=== PATIENT | male | born 1930 | race Caucasian/White ===

== ENCOUNTER 2016-07-06 06:25 | Day surgery (SDC) | payer MEDICARE ==
--- NOTE | 2016-07-05 13:27 | NUR ---
JOINT CAMP: Patient attended joint camp at [facility], patient is scheduled for knee replacement on 07/06/16. Patient states he does have a DPOA and he will be bringing in a copy. Patient comes from home and has 2 stairs to enter the home and then 12 inside. Megan Baum is spouse and she will be providing help once the patient is home. Spouse will also be the one to transport on day of discharge. Patient has never received Home health services and never been to intermediate. Patient has been connected with outpatient physical therapy in the past. Patient already has a walked and elevated toilet seat at home.
[~2016-07-06] VITALS: Ht 182.9 cm; Wt 87.7 kg
[2016-07-06] VITALS (12 sets, daily range): BP systolic 118–163; BP diastolic 73–85; PULSE 57–70; RESP 12–19; O2SAT 92–100
[~2016-07-06 06:25] MED LIST: AMLO5TAB2 PO; ASPI-973 PO; ATRV10T PO; Bupivacaine Liposome 1.3% 20 mL Inj INFILTRATE SCH; CELE-67 PO; CeFAZolin Inj 2 GM in IV Premix 1 EACH IV ONE; HYDR25TA4 PO; SODIUM CHLORIDE 0.9% IV ONE; VANCOMYCIN IV ONE
[2016-07-06] MEDS ORDERED: Propofol 10,000 mCg/mL 20 mL Inj ONE (06:26)
[2016-07-06] MEDS ORDERED: fentaNYL-PF 50 mCg/mL 2 mL Inj ONE (06:26)
[2016-07-06] MEDS: Lactated Ringer's 1,000 ML IV SCH ×2 (06:50→07:40)
[2016-07-06] MEDS ORDERED: Lactated Ringer's 1,000 ML IV SCH (08:17)
[2016-07-06] MEDS ORDERED: Lactated Ringer's 500 ML IV PRN (08:17)
--- NOTE | 2016-07-06 08:17 | PCM.HPANE ---
Patient Data Date of Service: July 06, 2016 (0815) Surgeon Admitting Provider: Attending Provider:Max Hernandez MD Primary Care Physician:Nithya Hughes MD Other Provider:Eirc Mcfarlane Anesthesia Reason for Visit Left Knee Arthritis Ht/WT & BMI Height (Feet): 6 Height (Inches): 0 Weight (Kilograms): 87.67 Body Mass Index 26.00 Allergies Coded Allergies: lisinopril (Verified Allergy, Unknown, 07/05/16) neomycin (Verified Allergy, Unknown, 07/05/16) oxycodone (Verified Allergy, Unknown, 07/05/16) Past Anesthesia History Anesthesia History: Denies:: Abnormal Airway Diabetes History Hx Diabetes?: No MRSA MRSA: No Medications Blood Thinner: Aspirin Hypertension Medication: Yes Home Meds Incl Beta Silver: No Reported Medications Hydrochlorothiazide 25 Mg [id number] Mg PO DAILY 30 Days Ref 0 07/05/16 Atorvastatin (Lipitor)10 Mg Tab10 Mg PO DAILY Ref 0 07/05/16 Celecoxib 200 Mg [id number] Mg PO DAILY 07/05/16 Aspirin 81 Mg [id number] Mg PO DAILY Ref 0 07/05/16 Amlodipine 5 Mg Tablet5 Mg PO DAILY Ref 0 07/05/16 History History of ENT Problems?: No HEENT History: Denies:: Abnormal Airway Denture Type: None Teeth Condition: Within Normal Limits Hx of Heart Problems?: Yes Cardiovascular History: Positive for:: Coronary Artery Disease (elevated chloresterol) Hypertension Hx of Respiratory Problem?: No Respiratory History: Denies:: Asthma Hx Neurologic Problems?: No Neurological History: Denies:: Alzheimer's Disease Hx of GI Problems?: No Hx of Problems?: No Male Hx: Positive for:: Prostate Problems (prostate ca) Skin History: Denies:: History Skin Disorders? Hx Musculoskeletal Problems?: Yes Musculoskeletal History: Positive for:: Osteoarthritis Hx of Psycho/Social Problems?: No Hx Surgeries?: Yes (l knee scope, l knee uni) Hx Any Other Health Problems?: No Other History: Positive for:: Cancer (prostate) Hx Diabetes: No Stop/Bang S-Snoring: Do You Snore Loudly: No T-Tired: feel tired, fatigued: No O-Obsered: Observed not breath: No P-Blood Pressure: treated: Yes B- Body Mass Index > 35 kg/m2: No A- Age over 50: Yes N- Neck Large Circumference: No G- Gender Male: Yes DEVI Total Score: 3 DEVI Risk Assessment: Low Risk, <3 Yes Risk Assessment Category Category 1A: Patient has history of documented sleep apnea, and HAS NOT received any narcotic, sedative or anesthesia administration during this stay. Category 1B: Patient has history of documented sleep apnea, and HAS received any narcotic , sedative or anesthesia administration during this stay Category 2: Patient has SUSPECTED Obstructive Sleep Apnea, and HAS received any narcotic , sedative or anesthesia administration during this stay. Category 3: Patient has SUSPECTED Obstructive Sleep Apnea and HAS NOT received narcotic, sedative or anesthesia administration during this stay. Category 4: Outpatient in Procedural Areas with known sleep apnea or who screen positive for High Risk via the STOP/BANG questionnaire. Exam Exam General Appearance: Alert, Oriented X3, Cooperative HEENT/AIRWAY: MP 1 Lungs: Clear to Auscultation Heart: Exam Unremarkable Meds/Labs/Diagnostics Admission Meds Current Medications Lactated Ringer's (Lr) 1,000 ml @ 120 mls/hr Q8H20M IV Last administered on t 06:50; Start 07/06/16 at 05:00; Stop 07/06/16 at 13:19 Plan Impression Patient chart reviewed, patient interviewed and anesthestic plan with risks, benefits, and alternatives discussed, and informed consent obtained. NPO per Anesth. Guidelines: Yes ASA Physical Status: ASA2 Mod Systemic Disease Anesthetic Plan: GA Bene/Risks/Altern/Consents: Yes HP Complete Prior to Induction: Yes Avni Blank MD July 06, 2016 08:17
[2016-07-06] MEDS ORDERED: EPHEDrine Sulfate 50 mg/mL Inj IVPUSH PRN (08:20)
[2016-07-06] MEDS ORDERED: Dexamethasone 4 mg/mL Inj IVPUSH PRN (08:20)
[2016-07-06] MEDS ORDERED: Phenylephrine 10,000 mCg/mL Inj IVPUSH PRN (08:20)
[2016-07-06] MEDS ORDERED: HYDROmorphone 1 mg/mL Inj IVPUSH PRN (08:20)
[2016-07-06] MEDS ORDERED: Ondansetron 2 mg/mL 2 mL Inj IVPUSH PRN (08:20)
[2016-07-06] MEDS ORDERED: Bupivacaine-MPF 0.25%/EPI 30 mL Inj INJ ONE (09:10)
[2016-07-06] MEDS ORDERED: Gentamicin 40 mg/mL 2 mL Inj IRRIGATION ONE (09:10)
[2016-07-06] MEDS ORDERED: Bupivacaine Liposome 1.3% 20 mL Inj INFILTRATE ONE (09:11)
--- NOTE | 2016-07-06 10:15 | PCM.ANEP1 ---
Post Anesthesia PACU Phase 1 Assessment Vital Signs 36.2, 57, 12, 155/73, 100% Anesthetic Administered: GA Level of Alertness: Awake, talking YAÑEZ's with Equal Strength: Yes Pain: No Nausea or Vomiting: No CV Function & Hydration Stable: Yes Airway Device: none Oxygen Delivery: Simple Mask Lungs: Clear to Auscultation Dermatome Level: Full Sensation Summary uneventful GA PACU Phase 2 Assessment Complications: No Follow up Care: No Patient Instructions Provided: N/A Avni Blank MD July 06, 2016 10:15
[2016-07-06] MEDS ORDERED: HYDROcodone-APAP 7.5-325 mg Tablet PO PRN (10:20)
[2016-07-06] MEDS: fentaNYL-PF 50 mCg/mL 2 mL Inj IVPUSH PRN ×4 (10:33→11:03)
--- NOTE | 2016-07-06 11:35 | OP ---
[address] [address] OPERATIVE REPORT PATIENT: WALESKA HEAD : 1930 MR#: [id number] ADMIT: 07/06/2016 JOB ID: [id number] DATE OF SURGERY: 07/06/2016 PROCEDURES: 1. Diagnostic arthroscopy. 2. Unicompartmental left knee arthroplasty. SURGEON: Max Hernandez M.D. FIRE CLAIMS ADJUSTER: Mari Smith PA-C. Subgrade Roller Operator required due to the complexity of operation. PREOPERATIVE DIAGNOSIS(ES): Osteoarthritis, left knee. PREOPERATIVE DIAGNOSIS(ES): Osteoarthritis, left knee. POSTOPERATIVE DIAGNOSIS(ES): Osteoarthritis, left knee. INDICATIONS: This gentleman has had progressive, now very disabling pain. Radiographs demonstrated isolated medial compartment osteoarthritis. However, he has a sagittal shift of the bones. Therefore, it is felt important to perform diagnostic arthroscopy to confirm the condition of the lateral compartment in order to determine appropriateness for a unicompartmental knee arthroplasty. PROCEDURE: The patient was prepped and draped in the usual sterile fashion. An anteromedial portal was utilized and the arthroscope was introduced. Diagnostic arthroscopy was carried out. Minimal osteoarthritic changes noted of the patellofemoral joint. Advanced arthritis of the medial compartment. An intact anterior cruciate ligament was noted. Minimal grade 1 degenerative changes in the lateral compartment with mild mechanically insignificant fraying of the lateral meniscus. He was determined he was a candidate for an unicompartmental knee arthroplasty based on these findings. The arthroscope was removed after the knee was fully lavaged of fluids. An anteromedial approach was made to the knee for performance of a unicompartmental knee arthroplasty. Dissection carried down. Frontal bossing and patellar osteophyte removed. The alignment, the tibial guide was assembled and a 3 mm deep tibial cut was made. The bone fragment was removed. Flexion-extension gaps were checked and noted to be appropriate and a 9 mm spacer block was utilized with a 1.2 mm distal offset with the Forrest wing. Standard cut was made. The fragment was measured at 5.5 mm. Wounds were irrigated with sterile irrigant. The femur was sized to a #6 chamfer block fixed in appropriate position. Rotation, drill holes and chamfer cuts were made. The tibia was sized to a F. Trial reductions were performed and an 8 mm polyethylene was chosen. Excellent alignment, soft tissue tension and tracking was noted. All meniscal tissue and osteophytes were carefully removed. Pressurized lavage was followed by pressurized cementation of the components. Excess cement was removed during the curing process and the final construct was assembled with polyethylene snapped securely into place. Cut margins were injected with Marcaine with epinephrine and the deep fascia was closed over a Hemovac drain with #2 Quill deep followed by 3-0, 4-0 with Steri-Strips. Sterile dressings applied. Patient returned to the recovery room in stable condition. He tolerated the procedure well. There were no complications.
--- NOTE | 2016-07-06 12:18 | DRSVH ---
PROCEDURE: X-RAY LEFT KNEE, ONE OR TWO VIEWS ([id number]) INDICATIONS: POST OP TECHNIQUE: 2 views of the knee acquired. COMPARISON: [facility], CR, XR KNEE ARTHRITIC SERIES LT, 05/18/2016, 14:24. FINDINGS: Bones: Patient is status post medial unicompartmental knee joint arthroplasty. Hardware components are in expected positions. Visualized bony structures are intact. Soft tissues: Overlying postoperative changes are noted including joint fluid and gas, soft tissue e seng, and a surgical drain. IMPRESSION: 1. Expected postsurgical changes status post medial unicompartmental arthroplasty. Dictated by: Jcarlos Pandey M.D. on 07/06/2016 at 11:04 Approved by: Jcarlos Pandey M.D. on 07/06/2016 at 11:16
== END 2016-07-06 23:59 | disposition home or self-care (01) ==
LOC: SAS 06:25
PROVIDERS: ATTEND Orthopaedic Surgery
DX: M17.12 Unilateral primary osteoarthritis, left knee (principal); I10 Essential (primary) hypertension; I25.10 Atherosclerotic heart disease of native coronary artery without angina pectoris; J45.909 Unspecified asthma, uncomplicated; Z79.82 Long term (current) use of aspirin; Z85.46 Personal history of malignant neoplasm of prostate; Z90.79 Acquired absence of other genital organ(s)
CPT/HCPCS: 27446; 73560; C1713; C1776; J0690; J1580; J1885; J3010; J3370; J7040; J7120